=== PATIENT | female | born 1995 | race Caucasian/White ===

== ENCOUNTER 2016-08-28 16:28 | Emergency (ER) | payer BC, OTHER ==
[~2016-08-28] VITALS: Ht 157.4 cm; Wt 46.3 kg
[~2016-08-28 16:28] MED LIST: ANTIDEPRESSANT; ATARAX25 MG PO; LOTRIMIN 1%15 GM PO; NKHM; NORVASC5 MG PO; ZOFRAN ODT4 MG SL
[2016-08-28 16:42] VITALS: BP 127/87
[2016-08-28 17:19] LABS: BASO # 0.1 10*3/uL (0.0-0.1); BASO % 0.5 % (0.0-1.0); EOS % 0.3 % (1.0-4.0); HEMATOCRIT 36.4 % (37.0-47.0); HEMOGLOBIN 12.4 g/dl (12.0-16.0); LYMPH # 2.2 10*3/uL (1.3-4.4); LYMPH % 23.1 % (27.0-41.0); MEAN CORPUSCULAR HGB 27.3 pg (27.0-31.0); MEAN CORPUSCULAR HGB CONC 34.1 g/dl (33.0-37.0); MEAN PLATELET VOLUME 10.3 fl (9.6-12.3); MONO # 0.5 10*3/uL (0.1-1.0); MONO % 4.8 % (3.0-9.0); NEUT # 6.8 10*3/uL (2.3-7.9); PLATELET COUNT AUTOMATED 344 10*3/uL (130-400); RED BLOOD COUNT 4.55 10*6/uL (4.10-5.10); RED CELL DISTRI WIDTH 13.1 % (0-14.5); WHITE BLOOD COUNT 9.6 10*3/uL (4.8-10.8)
[2016-08-28 17:35] LABS: ALBUMIN 3.6 gm/dl (3.1-4.5); ALKALINE PHOSPHATASE 32 U/L (45-117); BILIRUBIN, TOTAL 0.3 mg/dl (0.2-1.0); BUN 7 mg/dl (7-24); CARBON DIOXIDE 24 mmol/L (21-32); CHLORIDE 104 mmol/L (98-107); EST GLOM FILT AFRICAN AMERICAN > 60 ml/min; GLUCOSE 92 mg/dL (65-99); POTASSIUM 3.6 mmol/L (3.5-5.1); SGOT/AST 14 IU/L (3-35); SGPT/ALT 18 U/L (12-78); SODIUM 140 mmol/L (136-145); TOTAL PROTEIN 7.2 gm/dL (6.4-8.2)
[2016-08-28] MEDS ORDERED: ZOFRAN ODT4 MG SL (17:54)
== END 2016-08-28 17:58 | disposition home or self-care (01) ==
LOC: ED 16:28
PROVIDERS: Nurse Practitioner Family
DX: G43.909 Migraine, unspecified, not intractable, without status migrainosus (principal); Z88.8 Allergy status to other drugs, medicaments and biological substances

== ENCOUNTER 2016-09-13 20:46 | Emergency (ER) | payer BC, OTHER ==
[~2016-09-13] VITALS: Ht 157.4 cm; Wt 46.3 kg
[2016-09-13 20:54] VITALS: BP 134/98
[2016-09-13 21:20] LABS: BASO # 0.1 10*3/uL (0.0-0.1); BASO % 0.5 % (0.0-1.0); EOS # 0.1 10*3/uL (0.0-0.4); EOS % 0.6 % (1.0-4.0); HEMATOCRIT 38.5 % (37.0-47.0); HEMOGLOBIN 13.2 g/dl (12.0-16.0); LYMPH # 3.1 10*3/uL (1.3-4.4); LYMPH % 28.6 % (27.0-41.0); MEAN CELL VOLUME 78.3 fl (81.0-99.0); MEAN CORPUSCULAR HGB 26.8 pg (27.0-31.0); MEAN CORPUSCULAR HGB CONC 34.3 g/dl (33.0-37.0); MEAN PLATELET VOLUME 9.6 fl (9.6-12.3); MONO # 0.6 10*3/uL (0.1-1.0); NEUT # 6.9 10*3/uL (2.3-7.9); NEUT % 64.1 % (47.0-73.0); PLATELET COUNT AUTOMATED 401 10*3/uL (130-400); RED BLOOD COUNT 4.92 10*6/uL (4.10-5.10); RED CELL DISTRI WIDTH 13.1 % (0-14.5); WHITE BLOOD COUNT 10.7 10*3/uL (4.8-10.8)
[2016-09-13 21:37] LABS: B-hCG (QUALITATIVE) NEGATIVE (NEGATIVE); BUN 2 mg/dl (7-24); CARBON DIOXIDE 26 mmol/L (21-32); CHLORIDE 99 mmol/L (98-107); EST GLOM FILT AFRICAN AMERICAN > 60 ml/min; GLUCOSE 96 mg/dL (65-99); POTASSIUM 3.7 mmol/L (3.5-5.1); SODIUM 135 mmol/L (136-145); TROPONIN I < 0.015 ng/ml (<0.5)
[2016-09-13] MEDS ORDERED: ANAPROX DS550 MG PO (22:25)
== END 2016-09-13 22:18 | disposition home or self-care (01) ==
LOC: ED 20:46
PROVIDERS: Emergency Medicine Emergency Medical Services
DX: M94.0 Chondrocostal junction syndrome [Tietze] (principal); G43.909 Migraine, unspecified, not intractable, without status migrainosus; Z88.8 Allergy status to other drugs, medicaments and biological substances

== ENCOUNTER 2018-03-28 19:40 | Emergency (ER) | payer BC, OTHER ==
[~2018-03-28] VITALS: Ht 157.4 cm; Wt 54.4 kg
[~2018-03-28 19:40] MED LIST changes: +ANAPROX DS550 MG PO
[2018-03-28 20:17] LABS: BILIRUBIN NEGATIVE (NEGATIVE); BLOOD TRACE-INTACT (NEGATIVE); CLARITY CLEAR (CLEAR); COLOR YELLOW (YELLOW); GLUCOSE NEGATIVE (NEGATIVE); KETONE NEGATIVE (NEGATIVE); LEUKO ESTERASE 1+ (NEGATIVE); NITRITE NEGATIVE (NEGATIVE); SPECIFIC GRAVITY <= 1.005 (1.005-1.030); UROBILINOGEN 0.2 E.U./dl (0.2-1.0)
[2018-03-28 20:36] LABS: BACTERIA 1+
[2018-03-28] MEDS ORDERED: MACROBID100 M1 PO (21:14)
[2018-03-28] MEDS ORDERED: ROBAXIN500 M1 PO (21:14)
[2018-03-28 21:46] VITALS: BP 118/89
== END 2018-03-28 22:09 | disposition home or self-care (01) ==
LOC: ED 19:40
PROVIDERS: Physician Assistant
DX: N39.0 Urinary tract infection, site not specified (principal); M54.9 Dorsalgia, unspecified; M62.830 Muscle spasm of back; Z88.8 Allergy status to other drugs, medicaments and biological substances

== ENCOUNTER 2018-11-21 15:13 | Emergency (ER) | payer BC, OTHER ==
[~2018-11-21] VITALS: Ht 157.4 cm; Wt 50.8 kg
[2018-11-21 15:13] VITALS: BP 147/98
[~2018-11-21 15:13] MED LIST changes: +MACROBID100 M1 PO; +ROBAXIN500 M1 PO
[2018-11-21] MEDS ORDERED: Motrin,Rufen800 MG PO (16:57)
[2018-11-21] MEDS ORDERED: CYCLOBENZAPRINE10 MG PO (16:57)
[2018-11-21] MEDS ORDERED: MEDROL DOSEPAK4 MG PO (16:57)
[2019-03-19] MEDS ORDERED: MELATONIN5 M7 PO (13:54)
[2019-03-19] MEDS ORDERED: MIRTAZAPINE15 M2 PO (13:55)
[2019-03-22] MEDS ORDERED: NORCO 5-325 TA1 EACH PO (08:51)
== END 2018-11-21 17:00 | disposition home or self-care (01) ==
LOC: ED 15:13
DX: M62.830 Muscle spasm of back (principal); M54.6 Pain in thoracic spine; G43.909 Migraine, unspecified, not intractable, without status migrainosus; Z88.8 Allergy status to other drugs, medicaments and biological substances

== ENCOUNTER 2019-03-01 06:44 | Emergency (ER) | payer BC, OTHER ==
[~2019-03-01] VITALS: Ht 157.4 cm; Wt 55.3 kg
[~2019-03-01 06:44] MED LIST changes: +CYCLOBENZAPRINE10 MG PO; +MEDROL DOSEPAK4 MG PO; +Motrin,Rufen800 MG PO
[2019-03-01 07:28] LABS: BASO # 0.1 10*3/uL (0.0-0.1); BASO % 0.6 % (0.0-1.0); EOS % 0.3 % (1.0-4.0); HEMATOCRIT 41.2 % (37.0-47.0); HEMOGLOBIN 14.5 g/dl (12.0-16.0); LYMPH # 1.6 10*3/uL (1.3-4.4); LYMPH % 14.5 % (27.0-41.0); MEAN CELL VOLUME 84.9 fl (81.0-99.0); MEAN CORPUSCULAR HGB 29.9 pg (27.0-31.0); MEAN CORPUSCULAR HGB CONC 35.2 g/dl (33.0-37.0); MEAN PLATELET VOLUME 9.3 fl (9.6-12.3); MONO # 0.3 10*3/uL (0.1-1.0); NEUT % 81.3 % (47.0-73.0); PLATELET COUNT AUTOMATED 379 10*3/uL (130-400); RED BLOOD COUNT 4.85 10*6/uL (4.10-5.10); RED CELL DISTRI WIDTH 11.9 % (0-14.5)
[2019-03-01 07:45] LABS: ALBUMIN 4.1 gm/dl (3.1-4.5); ALKALINE PHOSPHATASE 59 U/L (45-117); BUN 8 mg/dl (7-24); CHLORIDE 106 mmol/L (98-107); CREATININE 0.81 mg/dL (0.55-1.02); POTASSIUM 3.8 mmol/L (3.5-5.1); SGOT/AST 14 IU/L (3-35); SGPT/ALT 20 U/L (12-78); SODIUM 138 mmol/L (136-145); TOTAL PROTEIN 7.9 gm/dL (6.4-8.2)
[2019-03-01 08:01] LABS: BILIRUBIN NEGATIVE (NEGATIVE); BLOOD TRACE-INTACT (NEGATIVE); CLARITY CLEAR (CLEAR); COLOR YELLOW (YELLOW); GLUCOSE NEGATIVE (NEGATIVE); KETONE NEGATIVE (NEGATIVE); LEUKO ESTERASE TRACE (NEGATIVE); NITRITE NEGATIVE (NEGATIVE); PH 6.5 (5.0-9.0); SPECIFIC GRAVITY 1.015 (1.005-1.030); UROBILINOGEN 0.2 E.U./dl (0.2-1.0)
[2019-03-01 08:11] LABS: BACTERIA TRACE
[2019-03-01] MEDS ORDERED: PHENERGAN25 M3 PO (08:55)
[2019-03-01] MEDS ORDERED: NORCO 10-325 T1 EACH PO (08:56)
[2019-03-01 08:57] VITALS: BP 152/104
[2019-03-19] MEDS ORDERED: MELATONIN5 M7 PO (13:54)
[2019-03-19] MEDS ORDERED: MIRTAZAPINE15 M2 PO (13:55)
[2019-03-22] MEDS ORDERED: NORCO 5-325 TA1 EACH PO (08:51)
== END 2019-03-01 09:02 | disposition home or self-care (01) ==
LOC: ED 06:44
PROVIDERS: Emergency Medicine
DX: K80.20 Calculus of gallbladder without cholecystitis without obstruction (principal); G43.909 Migraine, unspecified, not intractable, without status migrainosus; Z88.8 Allergy status to other drugs, medicaments and biological substances

== ENCOUNTER → 2019-03-22 | Day surgery (SDC) | payer BC, OTHER ==
[2019-03-22] VITALS (7 sets, daily range): BP systolic 110–135; BP diastolic 74–90
[~2019-03-22] VITALS: Ht 157.4 cm; Wt 56.7 kg
[~2019-03-22] MED LIST changes: +MELATONIN5 M7 PO; +MIRTAZAPINE15 M2 PO; +NORCO 10-325 T1 EACH PO; +NORCO 5-325 TA1 EACH PO; +PHENERGAN25 M3 PO
--- NOTE | ~2019-03-22 | O ---
[place], [place] OPERATIVE NOTE NAME: MARY TOM [facility] #: [id number] UNIT #: [id number] ROOM: DOCTOR: KLEBER BEARD MD BIRTHDATE: [birth year] DOS: 03/22/2019 PREOPERATIVE DIAGNOSIS: Symptomatic gallstones. POSTOPERATIVE DIAGNOSIS: Acute cholecystitis. PROCEDURE: Laparoscopic cholecystectomy. SURGEON: Kleber Beard MD MUD ANALYSIS OPERATOR: DAVID. ANESTHESIA: General with endotracheal intubation. INDICATIONS: This is a 24-year-old lady who is here for laparoscopic cholecystectomy for symptomatic gallstones. The procedure and its complications were explained to the patient in detail preoperatively. Complications that were discussed included, but were not limited to bleeding, infection, hematoma/seroma/abscess formation, biloma formation, prolonged postoperative pain, damage to lying vital structures, inadvertent injury to common bile duct, and incisional hernia formation. She agreed to proceed. DESCRIPTION OF PROCEDURE: After identifying the patient, the patient was brought to the operating suite and laid in the supine position. After induction of general anesthesia, the parts were painted and draped in the usual sterile fashion. Timeout procedure was called. An incision was made below the umbilicus in a transverse fashion. The skin and the subcutaneous tissue were incised. The fascia was incised vertically and 2 stay sutures with 0 Vicryl were taken on either side. The peritoneum was opened and a 12 mm Blanco port was introduced. Pneumoperitoneum was created. Under direct vision, an epigastric incision of 12 mm and two 5 mm incisions were made in the right upper quadrant and appropriate size ports were introduced. The gallbladder was found to be distended and acutely inflamed. Multiple adhesions were taken down in order to better visualize the gallbladder and the cystic duct. The gallbladder was retracted superiorly and laterally. The cystic duct and the cystic artery were meticulously dissected until the critical view of safety was obtained and the triangle of Calot was clearly identified. Thereafter, each of these structures were clipped 3 times and cut between the first and the second clip. The gallbladder was then removed from the bed of the gallbladder with the help of electrocautery. It was placed in the EndoCatch bag and removed from the peritoneal cavity and sent for histopathological diagnosis. Thereafter, hemostasis was confirmed and the irrigation fluid was sucked away. The right upper quadrant and the epigastric ports were then removed under direct vision and there was no bleeding seen. The umbilical port was also removed and the pneumoperitoneum was decompressed. The fascial defect was then approximated with the help of an additional 0 Vicryl suture and stay sutures were also tied together. The edges of the skin incisions were infiltrated with 1% plain lidocaine and then approximated with the help of 4-0 Vicryl in a subcuticular running fashion. Dressings were placed. The patient tolerated the procedure well. She was extubated uneventfully and brought back to the recovery room in [place], [place] OPERATIVE NOTE NAME: MARY TOM UNIT #: [id number] ROOM: DOCTOR: KLEBER BEARD MD BIRTHDATE: [birth year] stable fashion. There were no complications. Dr. Kleber Beard, the attending surgeon, was present throughout the operating case. Kleber Beard MD CM:OPRECORD:OPERATIVE NOTE [id number] KLEBER BEARD MD 03/22/19 0922 interface
== END | disposition home or self-care (01) ==
LOC: SDC 03-19 13:15
DX: K80.10 Calculus of gallbladder with chronic cholecystitis without obstruction (principal); I10 Essential (primary) hypertension; F41.9 Anxiety disorder, unspecified; Z98.890 Other specified postprocedural states; Z79.899 Other long term (current) drug therapy; Z80.8 Family history of malignant neoplasm of other organs or systems

== ENCOUNTER → 2019-11-15 | Outpatient (CLI) | payer BC, OTHER | END | disposition home or self-care (01) | LOC: US 13:43 | DX: E04.1 Nontoxic single thyroid nodule (principal) ==

== ENCOUNTER 2020-07-22 06:03 | Emergency (ER) | payer OTHER ==
[~2020-07-22] VITALS: Ht 157.4 cm; Wt 58.5 kg
[2020-07-22 06:07] VITALS: BP 154/80
[2020-07-22] MEDS ORDERED: AMOXICILLIN500 M2 PO (06:22)
== END 2020-07-22 06:55 | disposition home or self-care (01) ==
LOC: ED 06:03
DX: K04.7 Periapical abscess without sinus (principal); K08.89 Other specified disorders of teeth and supporting structures; Z88.8 Allergy status to other drugs, medicaments and biological substances; Z79.899 Other long term (current) drug therapy

== ENCOUNTER 2020-12-29 23:39 | Emergency (ER) | payer OTHER ==
[~2020-12-29 23:39] MED LIST changes: +AMOXICILLIN500 M2 PO
[2020-12-30 00:17] VITALS: BP 117/76
== END 2020-12-30 01:29 | disposition home or self-care (01) ==
LOC: ED 23:39
DX: T78.40XA Allergy, unspecified, initial encounter (principal); Z79.899 Other long term (current) drug therapy; X58.XXXA Exposure to other specified factors, initial encounter

== ENCOUNTER 2021-05-20 17:41 | Emergency (ER) | payer OTHER ==
[~2021-05-20] VITALS: Ht 157.4 cm; Wt 54.4 kg
[2021-05-20 22:01] VITALS: BP 118/90
== END 2021-05-21 00:05 | disposition home or self-care (01) ==
LOC: ED 17:41
DX: S96.912A Strain of unspecified muscle and tendon at ankle and foot level, left foot, initial encounter (principal); S20.211A Contusion of right front wall of thorax, initial encounter; S09.90XA Unspecified injury of head, initial encounter; G43.909 Migraine, unspecified, not intractable, without status migrainosus; Z88.8 Allergy status to other drugs, medicaments and biological substances; V89.2XXA Person injured in unspecified motor-vehicle accident, traffic, initial encounter; Y93.89 Activity, other specified; Y92.89 Other specified places as the place of occurrence of the external cause; Y99.8 Other external cause status

== ENCOUNTER 2022-02-01 20:35 | Emergency (ER) | payer OTHER ==
[~2022-02-01] VITALS: Ht 157.4 cm; Wt 47.6 kg
[2022-02-01 20:45] VITALS: BP 155/100
[2022-02-01] MEDS ORDERED: ZOFRAN4 MG PO (20:59)
[2022-02-01] MEDS ORDERED: AUGMENTIN 875-875 MG PO (20:59)
[2022-02-01] MEDS ORDERED: NAPROSYN500 MG PO (20:59)
== END 2022-02-01 21:11 | disposition home or self-care (01) ==
LOC: ED 20:35
DX: K02.9 Dental caries, unspecified (principal); Z90.89 Acquired absence of other organs

== ENCOUNTER 2022-02-10 11:19 | Emergency (ER) | payer OTHER ==
[~2022-02-10 11:19] MED LIST changes: +AUGMENTIN 875-875 MG PO; +NAPROSYN500 MG PO; +ZOFRAN4 MG PO
[2022-02-10 11:37] VITALS: BP 138/108
[2022-02-10] MEDS ORDERED: CLINDAMYCIN HC300 MG PO (11:39)
[2022-02-10] MEDS ORDERED: Motrin,Rufen800 MG PO (11:39)
== END 2022-02-10 11:42 | disposition home or self-care (01) ==
LOC: ED 11:19
DX: K04.7 Periapical abscess without sinus (principal)

== ENCOUNTER 2022-03-26 21:25 | Emergency (ER) | payer OTHER ==
[~2022-03-26] VITALS: Ht 157.4 cm; Wt 49.9 kg
[~2022-03-26 21:25] MED LIST changes: +CLINDAMYCIN HC300 MG PO
[2022-03-26 21:42] VITALS: BP 158/106
[2022-03-26] MEDS ORDERED: AUGMENTIN 500500 M1 PO (21:49)
[2022-03-26] MEDS ORDERED: Motrin,Rufen800 MG PO (21:54)
== END 2022-03-26 22:30 | disposition home or self-care (01) ==
LOC: ED 21:25
DX: K04.7 Periapical abscess without sinus (principal); Z88.8 Allergy status to other drugs, medicaments and biological substances

== ENCOUNTER 2022-05-10 16:20 | Emergency (ER) | payer OTHER ==
[~2022-05-10] VITALS: Ht 157.4 cm; Wt 46.3 kg
[~2022-05-10 16:20] MED LIST changes: +AUGMENTIN 500500 M1 PO
[2022-05-10 16:23] VITALS: BP 153/90
[2022-05-10] MEDS ORDERED: CLEOCIN HCL300 MG PO (16:42)
[2022-05-10] MEDS ORDERED: ONDANSETRON4 MG SL (16:42)
[2022-05-10] MEDS ORDERED: HYDROCODONE-AC1 EACH PO ×2 (16:42→16:43)
== END 2022-05-10 16:54 | disposition home or self-care (01) ==
LOC: ED 16:20
DX: K04.7 Periapical abscess without sinus (principal); Z88.8 Allergy status to other drugs, medicaments and biological substances; Z90.89 Acquired absence of other organs

== ENCOUNTER 2022-06-29 17:22 | Emergency (ER) | payer OTHER ==
[~2022-06-29] VITALS: Wt 49.4 kg
[~2022-06-29 17:22] MED LIST changes: +CLEOCIN HCL300 MG PO; +HYDROCODONE-AC1 EACH PO; +ONDANSETRON4 MG SL
[2022-06-29 17:28] VITALS: BP 122/57
[2022-06-29] MEDS ORDERED: PREDNISONE20 M1 PO (20:24)
[2022-06-29] MEDS ORDERED: PERCOCET 7.5-31 EACH PO (20:24)
== END 2022-06-29 20:38 | disposition home or self-care (01) ==
LOC: ED 17:22
DX: G89.29 Other chronic pain (principal); M54.50 Low back pain, unspecified; M54.6 Pain in thoracic spine; Z88.8 Allergy status to other drugs, medicaments and biological substances; Z79.2 Long term (current) use of antibiotics; Z79.899 Other long term (current) drug therapy; Z96.22 Myringotomy tube(s) status

== ENCOUNTER 2022-07-25 19:26 | Emergency (ER) | payer OTHER ==
[~2022-07-25] VITALS: Ht 157.4 cm; Wt 47.2 kg
[~2022-07-25 19:26] MED LIST changes: +PERCOCET 7.5-31 EACH PO; +PREDNISONE20 M1 PO
[2022-07-25 19:34] VITALS: BP 148/91
[2022-07-25 20:40] LABS: BILIRUBIN Negative (Negative); BLOOD Negative (Negative); CLARITY Clear (Clear); COLOR Yellow (Yellow); GLUCOSE Negative (Negative); KETONE Negative (Negative); LEUKO ESTERASE Negative (Negative); NITRITE Negative (Negative); PH 6.5 (4.5-8.0); SPECIFIC GRAVITY <= 1.005 (1.001-1.030); UROBILINOGEN 0.2 E.U./dl (0.0-1.0)
[2022-07-25 21:04] LABS: BACTERIA TRACE; EPITHELIAL CELLS 0-2
[2022-07-25] MEDS ORDERED: HYDROCODONE-AC1 EAC1 PO (21:07)
[2022-07-25] MEDS ORDERED: PREDNISONE20 M1 PO (21:08)
== END 2022-07-25 22:04 | disposition home or self-care (01) ==
LOC: ED 19:26
PROVIDERS: Emergency Medicine
DX: M54.9 Dorsalgia, unspecified (principal); W22.8XXA Striking against or struck by other objects, initial encounter; Y93.89 Activity, other specified; Y92.89 Other specified places as the place of occurrence of the external cause; Y99.8 Other external cause status

== ENCOUNTER 2022-07-26 21:48 | Emergency (ER) | payer OTHER ==
[~2022-07-26] VITALS: Wt 47.2 kg
[~2022-07-26 21:48] MED LIST changes: +HYDROCODONE-AC1 EAC1 PO
[2022-07-26 22:36] VITALS: BP 138/79
== END 2022-07-26 23:41 | disposition home or self-care (01) ==
LOC: ED 21:48
DX: T42.4X1A Poisoning by benzodiazepines, accidental (unintentional), initial encounter (principal); Z88.8 Allergy status to other drugs, medicaments and biological substances; Z90.89 Acquired absence of other organs; Y92.89 Other specified places as the place of occurrence of the external cause

== ENCOUNTER 2022-08-24 19:42 | Emergency (ER) | payer OTHER ==
[~2022-08-24] VITALS: Ht 157.4 cm; Wt 49.4 kg
[2022-08-24 20:00] VITALS: BP 142/92
[2022-08-24] MEDS ORDERED: DULOXETINE HCL60 MG PO (20:15)
[2022-08-24] MEDS ORDERED: TRAZODONE100 MG PO (20:15)
[2022-08-24 21:18] LABS: BASO # 0.1 10*3/uL (0.0-0.1); EOS # 0.1 10*3/uL (0.0-0.4); EOS % 1.7 % (1.0-4.0); HEMATOCRIT 39.2 % (37.0-47.0); LYMPH # 1.7 10*3/uL (1.3-4.4); LYMPH % 28.1 % (27.0-41.0); MEAN CELL VOLUME 80.7 fl (81.0-99.0); MEAN CORPUSCULAR HGB 28.6 pg (27.0-31.0); MEAN CORPUSCULAR HGB CONC 35.5 g/dl (33.0-37.0); MEAN PLATELET VOLUME 8.6 fl (9.6-12.3); MONO # 0.4 10*3/uL (0.1-1.0); MONO % 6.6 % (3.0-9.0); NEUT # 3.8 10*3/uL (2.3-7.9); NEUT % 62.4 % (47.0-73.0); PLATELET COUNT AUTOMATED 377 10*3/uL (130-400); RED BLOOD COUNT 4.86 10*6/uL (4.10-5.10); WHITE BLOOD COUNT 6.1 10*3/uL (4.8-10.8)
[2022-08-24 21:35] LABS: ALKALINE PHOSPHATASE 55 U/L (46-116); CHLORIDE 95 mmol/L (98-107); POTASSIUM 4.1 mmol/L (3.4-5.1); SGPT/ALT 21 U/L (10-49); TOTAL PROTEIN 6.7 gm/dL (6.0-8.0)
[2022-08-24 21:36] LABS: BUN < 5 mg/dl (9-23)
[2022-08-24 21:50] LABS: BILIRUBIN Negative (Negative); BLOOD 3+ (Negative); CLARITY Clear (Clear); COLOR Red (Yellow); GLUCOSE Negative (Negative); KETONE Negative (Negative); LEUKO ESTERASE 2+ (Negative); NITRITE Negative (Negative); PH 6.5 (4.5-8.0); SPECIFIC GRAVITY <= 1.005 (1.001-1.030)
[2022-08-24 21:59] LABS: BACTERIA TRACE; EPITHELIAL CELLS 0-2; RBC TNTC rbc/hpf (0-2); WBC 16-20 wbc/hpf (0-5)
[2022-08-25] MEDS ORDERED: CIPRO500 MG PO (00:54)
== END 2022-08-25 00:59 | disposition home or self-care (01) ==
LOC: ED 19:42
PROVIDERS: Physician Assistant
DX: N39.0 Urinary tract infection, site not specified (principal); Q61.3 Polycystic kidney, unspecified; Q85.83 Von Hippel-Lindau syndrome; E87.1 Hypo-osmolality and hyponatremia; R51.9 Headache, unspecified; I10 Essential (primary) hypertension; Z88.8 Allergy status to other drugs, medicaments and biological substances; Z79.899 Other long term (current) drug therapy; Z90.89 Acquired absence of other organs

== ENCOUNTER 2022-09-11 22:07 | Emergency (ER) | payer OTHER ==
[~2022-09-11 22:07] MED LIST changes: +CIPRO500 MG PO; +DULOXETINE HCL60 MG PO; +TRAZODONE100 MG PO
[2022-09-11 22:22] VITALS: BP 147/67
[2022-09-11] MEDS ORDERED: PREDNISONE50 MG PO (22:27)
[2022-09-11] MEDS ORDERED: CYCLOBENZAPRINE10 MG PO (22:28)
== END 2022-09-11 22:45 | disposition home or self-care (01) ==
LOC: ED 22:07
DX: M54.6 Pain in thoracic spine (principal); Z88.8 Allergy status to other drugs, medicaments and biological substances; Z98.890 Other specified postprocedural states

== ENCOUNTER 2022-09-23 19:04 | Emergency (ER) | payer OTHER ==
[~2022-09-23] VITALS: Ht 157.4 cm; Wt 63.5 kg
[~2022-09-23 19:04] MED LIST changes: +PREDNISONE50 MG PO
[2022-09-23 19:32] VITALS: BP 122/65
[2022-09-23] MEDS ORDERED: HYDROCODONE-AC1 EAC1 PO (20:35)
[2022-09-24] MEDS ORDERED: HYDROCODONE-AC1 EAC1 PO (11:12)
== END 2022-09-23 21:09 | disposition home or self-care (01) ==
LOC: ED 19:04
DX: F25.0 Schizoaffective disorder, bipolar type (principal); Z88.1 Allergy status to other antibiotic agents; Z88.8 Allergy status to other drugs, medicaments and biological substances; Z79.899 Other long term (current) drug therapy

== ENCOUNTER 2022-09-27 08:12 | Emergency (ER) | payer OTHER ==
[~2022-09-27] VITALS: Wt 49.9 kg
[2022-09-27 08:19] VITALS: BP 153/108
== END 2022-09-27 09:21 | disposition home or self-care (01) ==
LOC: ED 08:12
DX: S60.221A Contusion of right hand, initial encounter (principal); Z79.899 Other long term (current) drug therapy; Z90.89 Acquired absence of other organs; Z88.8 Allergy status to other drugs, medicaments and biological substances; W22.01XA Walked into wall, initial encounter; Y93.89 Activity, other specified; Y92.89 Other specified places as the place of occurrence of the external cause; Y99.8 Other external cause status

== ENCOUNTER 2022-10-21 19:20 | Emergency (ER) | payer OTHER ==
[~2022-10-21] VITALS: Ht 157.4 cm; Wt 49.9 kg
[2022-10-21] MEDS ORDERED: 'CLONIDINE0.1 MG PO ×2 (19:48→19:49)
[2022-10-21 19:54] VITALS: BP 126/78
[2022-10-21] MEDS ORDERED: METHOCARBAMOL750 M1 PO (20:02)
[2022-10-21] MEDS ORDERED: NAPROXEN250 MG PO (20:02)
== END 2022-10-21 20:06 | disposition home or self-care (01) ==
LOC: ED 19:20
DX: S29.012A Strain of muscle and tendon of back wall of thorax, initial encounter (principal); Z88.8 Allergy status to other drugs, medicaments and biological substances; Z79.899 Other long term (current) drug therapy; Z90.89 Acquired absence of other organs; Z98.890 Other specified postprocedural states; X58.XXXA Exposure to other specified factors, initial encounter; Y93.89 Activity, other specified; Y92.89 Other specified places as the place of occurrence of the external cause; Y99.8 Other external cause status

== ENCOUNTER 2022-12-10 18:15 | Emergency (ER) | payer OTHER ==
[~2022-12-10] VITALS: Ht 157.4 cm; Wt 50.8 kg
[~2022-12-10 18:15] MED LIST changes: +'CLONIDINE0.1 MG PO; +METHOCARBAMOL750 M1 PO; +NAPROXEN250 MG PO
[2022-12-10 19:00] VITALS: BP 140/98
[2022-12-10] MEDS ORDERED: AMBIEN5 MG PO (19:15)
[2022-12-10] MEDS ORDERED: PENICILLIN VK500 MG PO (19:27)
== END 2022-12-10 19:55 | disposition home or self-care (01) ==
LOC: ED 18:15
DX: K02.9 Dental caries, unspecified (principal); Z88.8 Allergy status to other drugs, medicaments and biological substances; Z79.899 Other long term (current) drug therapy; Z90.89 Acquired absence of other organs

== ENCOUNTER 2023-01-18 06:39 | Emergency (ER) | payer OTHER ==
[~2023-01-18] VITALS: Ht 162.5 cm; Wt 68.0 kg
[~2023-01-18 06:39] MED LIST changes: +AMBIEN5 MG PO; +PENICILLIN VK500 MG PO
[2023-01-18 06:49] VITALS: BP 105/76
[2023-01-18] MEDS ORDERED: Motrin,Rufen800 MG PO (08:28)
== END 2023-01-18 08:41 | disposition home or self-care (01) ==
LOC: ED 06:39
DX: S09.90XA Unspecified injury of head, initial encounter (principal); M25.512 Pain in left shoulder; M54.2 Cervicalgia; M54.50 Low back pain, unspecified; I10 Essential (primary) hypertension; Z88.8 Allergy status to other drugs, medicaments and biological substances; Z98.890 Other specified postprocedural states; W18.2XXA Fall in (into) shower or empty bathtub, initial encounter; Y93.89 Activity, other specified; Y92.002 Bathroom of unspecified non-institutional (private) residence as the place of occurrence of the external cause; Y99.8 Other external cause status

== ENCOUNTER 2023-03-05 07:02 | Emergency (ER) | payer OTHER ==
[~2023-03-05] VITALS: Ht 157.4 cm; Wt 51.7 kg
[2023-03-05 07:11] VITALS: BP 122/86
[2023-03-05 08:33] LABS: BASO # 0.1 10*3/uL (0.0-0.1); BASO % 0.6 % (0.0-1.0); EOS # 0.1 10*3/uL (0.0-0.4); EOS % 0.5 % (1.0-4.0); HEMATOCRIT 37.7 % (37.0-47.0); LYMPH # 1.5 10*3/uL (1.3-4.4); LYMPH % 11.4 % (27.0-41.0); MEAN CORPUSCULAR HGB 28.6 pg (27.0-31.0); MEAN CORPUSCULAR HGB CONC 34.5 g/dl (33.0-37.0); MONO # 0.6 10*3/uL (0.1-1.0); MONO % 4.5 % (3.0-9.0); NEUT # 10.8 10*3/uL (2.3-7.9); NEUT % 82.8 % (47.0-73.0); PLATELET COUNT AUTOMATED 302 10*3/uL (130-400); RED BLOOD COUNT 4.54 10*6/uL (4.10-5.10); RED CELL DISTRI WIDTH 12.1 % (0-14.5)
[2023-03-05 08:56] LABS: ALKALINE PHOSPHATASE 63 U/L (46-116); BUN 5 mg/dl (9-23); CHLORIDE 99 mmol/L (98-107); POTASSIUM 3.4 mmol/L (3.4-5.1); SGPT/ALT 7 U/L (10-49); TOTAL PROTEIN 6.2 gm/dL (6.0-8.0)
[2023-03-05 09:11] LABS: BILIRUBIN Negative (Negative); BLOOD Negative (Negative); CLARITY Clear (Clear); COLOR Yellow (Yellow); GLUCOSE Negative (Negative); KETONE Negative (Negative); LEUKO ESTERASE 1+ (Negative); NITRITE Negative (Negative); PH 6.5 (4.5-8.0); SPECIFIC GRAVITY <= 1.005 (1.001-1.030)
[2023-03-05 09:26] LABS: BACTERIA TRACE; MUCOUS TRACE
[2023-03-05] MEDS ORDERED: REGLAN10 M1 PO (10:13)
== END 2023-03-05 10:50 | disposition home or self-care (01) ==
LOC: ED 07:02
PROVIDERS: Internal Medicine
DX: R11.2 Nausea with vomiting, unspecified (principal); R05.9 Cough, unspecified; M54.2 Cervicalgia; R68.84 Jaw pain; M54.9 Dorsalgia, unspecified; M25.551 Pain in right hip; M25.552 Pain in left hip; G89.29 Other chronic pain; Z88.8 Allergy status to other drugs, medicaments and biological substances; Z79.899 Other long term (current) drug therapy; Z79.2 Long term (current) use of antibiotics; Z96.22 Myringotomy tube(s) status

== ENCOUNTER 2023-03-21 13:08 | Emergency (ER) | payer OTHER ==
[~2023-03-21] VITALS: Wt 52.2 kg
[~2023-03-21 13:08] MED LIST changes: +REGLAN10 M1 PO
[2023-03-21 13:23] VITALS: BP 112/74
[2023-03-21] MEDS ORDERED: HYDROCODONE-AC1 EAC1 PO ×2 (14:53)
[2023-03-21] MEDS ORDERED: AMOX-CLAV 875-1 EACH PO ×2 (14:53)
[2023-03-24] MEDS ORDERED: TRAZODONE100 MG PO (10:27)
== END 2023-03-21 15:10 | disposition home or self-care (01) ==
LOC: ED 13:08
DX: S00.551A Superficial foreign body of lip, initial encounter (principal); Z88.8 Allergy status to other drugs, medicaments and biological substances; Z79.899 Other long term (current) drug therapy; Z79.2 Long term (current) use of antibiotics; Z96.22 Myringotomy tube(s) status; X58.XXXA Exposure to other specified factors, initial encounter; Y93.89 Activity, other specified; Y92.89 Other specified places as the place of occurrence of the external cause; Y99.8 Other external cause status

== ENCOUNTER → 2023-03-28 | Day surgery (SDC) | payer OTHER ==
[~2023-03-28] VITALS: Ht 157.4 cm; Wt 52.2 kg
[~2023-03-28] MED LIST changes: +AMOX-CLAV 875-1 EACH PO
[2023-03-28 10:31] VITALS: BP 126/72
[2023-03-28 11:06] VITALS: BP 114/79
[2023-03-28 11:21] VITALS: BP 128/93
[2023-03-28 11:31] VITALS: BP 125/90
== END ==
LOC: SDC 03-25 12:30
PROVIDERS: ATTEND Surgery
DX: S00.551A Superficial foreign body of lip, initial encounter (principal); Q85.83 Von Hippel-Lindau syndrome; I10 Essential (primary) hypertension; H54.7 Unspecified visual loss; F41.9 Anxiety disorder, unspecified; F32.A Depression, unspecified; Z79.899 Other long term (current) drug therapy; Z90.49 Acquired absence of other specified parts of digestive tract; Z90.89 Acquired absence of other organs; Z98.890 Other specified postprocedural states; X58.XXXA Exposure to other specified factors, initial encounter

== ENCOUNTER 2023-05-14 21:01 | Emergency (ER) | payer OTHER ==
[~2023-05-14] VITALS: Ht 157.4 cm; Wt 52.2 kg
[2023-05-14 22:02] LABS: BASO # 0.1 10*3/uL (0.0-0.1); BASO % 0.8 % (0.0-1.0); EOS # 0.1 10*3/uL (0.0-0.4); EOS % 1.4 % (1.0-4.0); HEMATOCRIT 38.9 % (37.0-47.0); LYMPH # 1.3 10*3/uL (1.3-4.4); LYMPH % 20.3 % (27.0-41.0); MEAN CELL VOLUME 83.1 fl (81.0-99.0); MEAN CORPUSCULAR HGB 28.6 pg (27.0-31.0); MEAN CORPUSCULAR HGB CONC 34.4 g/dl (33.0-37.0); MEAN PLATELET VOLUME 8.8 fl (9.6-12.3); MONO # 0.4 10*3/uL (0.1-1.0); MONO % 6.3 % (3.0-9.0); NEUT # 4.6 10*3/uL (2.3-7.9); NEUT % 70.7 % (47.0-73.0); PLATELET COUNT AUTOMATED 313 10*3/uL (130-400); RED BLOOD COUNT 4.68 10*6/uL (4.10-5.10); RED CELL DISTRI WIDTH 12.9 % (0-14.5); WHITE BLOOD COUNT 6.5 10*3/uL (4.8-10.8)
[2023-05-14 22:24] LABS: ALKALINE PHOSPHATASE 65 U/L (46-116); CHLORIDE 106 mmol/L (98-107); POTASSIUM 4.3 mmol/L (3.4-5.1); SGPT/ALT 12 U/L (10-49); TOTAL PROTEIN 6.4 gm/dL (6.0-8.0)
[2023-05-14 22:29] LABS: BUN < 5 mg/dl (9-23)
[2023-05-14 23:21] VITALS: BP 157/106
[2023-05-14] MEDS ORDERED: ONDANSETRON4 MG SL (23:23)
== END 2023-05-14 23:35 | disposition home or self-care (01) ==
LOC: ED 21:01
PROVIDERS: Nurse Practitioner
DX: B34.9 Viral infection, unspecified (principal); R11.2 Nausea with vomiting, unspecified; I10 Essential (primary) hypertension; Z88.8 Allergy status to other drugs, medicaments and biological substances; Z98.890 Other specified postprocedural states; Z20.822 Contact with and (suspected) exposure to COVID-19

== ENCOUNTER 2023-08-08 04:14 | Emergency (ER) | payer OTHER ==
[~2023-08-08] VITALS: Ht 157.4 cm; Wt 49.9 kg
[2023-08-08 04:24] VITALS: BP 163/109
[2023-08-08] MEDS ORDERED: AMOX-CLAV 875-1 EACH PO (05:32)
[2023-08-08] MEDS ORDERED: MELOXICAM15 MG PO (05:32)
== END 2023-08-08 05:47 | disposition home or self-care (01) ==
LOC: ED 04:14
DX: K02.9 Dental caries, unspecified (principal); K04.7 Periapical abscess without sinus; R51.9 Headache, unspecified; I10 Essential (primary) hypertension; Z88.8 Allergy status to other drugs, medicaments and biological substances; Z98.890 Other specified postprocedural states; Z20.822 Contact with and (suspected) exposure to COVID-19

== ENCOUNTER 2023-09-09 21:20 | Emergency (ER) | payer OTHER ==
[~2023-09-09] VITALS: Ht 157.4 cm; Wt 54.9 kg
[~2023-09-09 21:20] MED LIST changes: +MELOXICAM15 MG PO
[2023-09-09] MEDS ORDERED: BUSPIRONE10 MG PO (21:44)
[2023-09-09] MEDS ORDERED: ATENOLOL25 MG PO (21:44)
[2023-09-09 22:50] LABS: BASO # 0.1 10*3/uL (0.0-0.1); BASO % 0.6 % (0.0-1.0); EOS # 0.2 10*3/uL (0.0-0.4); EOS % 1.7 % (1.0-4.0); HEMATOCRIT 38.6 % (37.0-47.0); LYMPH # 2.1 10*3/uL (1.3-4.4); LYMPH % 18.1 % (27.0-41.0); MEAN CELL VOLUME 84.3 fl (81.0-99.0); MEAN CORPUSCULAR HGB 28.4 pg (27.0-31.0); MEAN CORPUSCULAR HGB CONC 33.7 g/dl (33.0-37.0); MEAN PLATELET VOLUME 8.6 fl (9.6-12.3); MONO # 0.7 10*3/uL (0.1-1.0); MONO % 5.9 % (3.0-9.0); NEUT # 8.7 10*3/uL (2.3-7.9); NEUT % 73.5 % (47.0-73.0); PLATELET COUNT AUTOMATED 337 10*3/uL (130-400); RED BLOOD COUNT 4.58 10*6/uL (4.10-5.10); RED CELL DISTRI WIDTH 11.7 % (0-14.5); WHITE BLOOD COUNT 11.8 10*3/uL (4.8-10.8)
[2023-09-09 23:11] LABS: ALKALINE PHOSPHATASE 49 U/L (46-116); CHLORIDE 103 mmol/L (98-107); POTASSIUM 3.7 mmol/L (3.4-5.1); SGPT/ALT 18 U/L (5-49); TOTAL PROTEIN 6.6 gm/dL (6.0-8.0)
[2023-09-09 23:12] LABS: BUN < 5 mg/dl (9-23)
[2023-09-10 00:50] VITALS: BP 137/99
[2023-09-10 01:00] LABS: BILIRUBIN Negative (Negative); BLOOD 3+ (Negative); CLARITY Clear (Clear); COLOR Yellow (Yellow); GLUCOSE Negative (Negative); KETONE Negative (Negative); LEUKO ESTERASE 2+ (Negative); NITRITE Negative (Negative); SPECIFIC GRAVITY <= 1.005 (1.001-1.030)
[2023-09-10 01:18] LABS: EPITHELIAL CELLS 16-20
[2023-09-10] MEDS ORDERED: CIPRO500 MG PO (01:27)
== END 2023-09-10 01:34 | disposition home or self-care (01) ==
LOC: ED 21:20
PROVIDERS: Internal Medicine; Physician Assistant Medical
DX: N39.0 Urinary tract infection, site not specified (principal); I10 Essential (primary) hypertension; R51.9 Headache, unspecified; R11.0 Nausea; Z88.8 Allergy status to other drugs, medicaments and biological substances; Z98.890 Other specified postprocedural states

== ENCOUNTER → 2023-09-13 | Outpatient (CLI) | payer OTHER ==
[~2023-09-13] MED LIST changes: +ATENOLOL25 MG PO; +BUSPIRONE10 MG PO
== END | disposition home or self-care (01) ==
LOC: RAD 12:49
PROVIDERS: ATTEND Internal Medicine Nephrology
DX: M51.36 Other intervertebral disc degeneration, lumbar region (principal); M47.816 Spondylosis without myelopathy or radiculopathy, lumbar region; M48.061 Spinal stenosis, lumbar region without neurogenic claudication

== ENCOUNTER 2024-02-18 16:28 | Emergency (ER) | payer OTHER ==
[~2024-02-18] VITALS: Ht 157.4 cm; Wt 54.0 kg
[2024-02-18 16:51] VITALS: BP 124/78
[2024-02-18] MEDS ORDERED: Acetaminophen/Oxycodone 5 MG/325 MG TABLET PO ONE (17:00)
[2024-02-18] MEDS ORDERED: CYCLOBENZAPRINE10 MG PO (17:05)
[2024-02-18] MEDS ORDERED: MELOXICAM15 MG PO (17:05)
[2024-02-18] MEDS ORDERED: METHOCARBAMOL750 M1 PO (17:41)
== END 2024-02-18 17:42 | disposition home or self-care (01) ==
LOC: ED 16:28
DX: M62.830 Muscle spasm of back (principal); I10 Essential (primary) hypertension; Z88.8 Allergy status to other drugs, medicaments and biological substances; Z98.890 Other specified postprocedural states

== ENCOUNTER → 2024-02-24 | Outpatient (CLI) | payer OTHER | END | disposition home or self-care (01) | LOC: RAD 14:47 | PROVIDERS: ATTEND Family Medicine | DX: M25.512 Pain in left shoulder (principal) ==

== ENCOUNTER 2024-03-07 16:03 | Emergency (ER) | payer OTHER ==
[~2024-03-07] VITALS: Ht 157.4 cm; Wt 54.0 kg
[2024-03-07 16:24] VITALS: BP 121/73
[2024-03-07] MEDS ORDERED: AMOX-CLAV 875-1 EACH PO (17:20)
== END 2024-03-07 17:22 | disposition home or self-care (01) ==
LOC: ED 16:03
DX: K02.9 Dental caries, unspecified (principal); Z88.8 Allergy status to other drugs, medicaments and biological substances; Z79.899 Other long term (current) drug therapy; Z96.22 Myringotomy tube(s) status

== ENCOUNTER 2024-03-16 20:52 | Emergency (ER) | payer OTHER ==
[~2024-03-16] VITALS: Ht 157.4 cm; Wt 54.0 kg
[2024-03-16 21:04] VITALS: BP 135/86
[2024-03-17] MEDS ORDERED: PREDNISONE20 M1 PO (00:14)
[2024-03-17] MEDS ORDERED: predniSONE 20 MG TAB PO ONE (00:15)
== END 2024-03-17 00:31 | disposition home or self-care (01) ==
LOC: ED 20:52
DX: M54.6 Pain in thoracic spine (principal); M25.512 Pain in left shoulder; G43.909 Migraine, unspecified, not intractable, without status migrainosus; Z88.8 Allergy status to other drugs, medicaments and biological substances; Z79.2 Long term (current) use of antibiotics; Z79.899 Other long term (current) drug therapy; Z87.42 Personal history of other diseases of the female genital tract; Z96.22 Myringotomy tube(s) status; W18.39XA Other fall on same level, initial encounter; Y93.89 Activity, other specified; Y92.89 Other specified places as the place of occurrence of the external cause; Y99.8 Other external cause status

== ENCOUNTER → 2024-05-03 | Outpatient (CLI) | payer OTHER ==
[2024-05-08 15:07] LABS: NORMETANEPHRINE, PLASMA 60.9 pg/mL (0.0-210.1)
[2024-05-08 15:32] LABS: METANEPHRINE, PLASMA <25.0 pg/mL (0.0-88.0)
== END | disposition home or self-care (01) ==
LOC: LAB 09:52
PROVIDERS: ATTEND Internal Medicine Hematology & Oncology
DX: E27.5 Adrenomedullary hyperfunction (principal)

== ENCOUNTER 2024-10-08 05:45 | Emergency (ER) | payer OTHER ==
[~2024-10-08] VITALS: Ht 157.4 cm; Wt 59.0 kg
[2024-10-08 05:59] VITALS: BP 148/102
[2024-10-08] MEDS ORDERED: Acetaminophen/Hydrocodone 5 MG/325 MG TABLET PO ONE (07:55)
== END 2024-10-08 08:18 | disposition home or self-care (01) ==
LOC: ED 05:45
DX: S93.401A Sprain of unspecified ligament of right ankle, initial encounter (principal); S80.11XA Contusion of right lower leg, initial encounter; I10 Essential (primary) hypertension; Z88.8 Allergy status to other drugs, medicaments and biological substances; Z98.890 Other specified postprocedural states; W01.0XXA Fall on same level from slipping, tripping and stumbling without subsequent striking against object, initial encounter; Y93.E1 Activity, personal bathing and showering; Y92.009 Unspecified place in unspecified non-institutional (private) residence as the place of occurrence of the external cause; Y99.8 Other external cause status

== ENCOUNTER → 2024-10-23 | Outpatient (CLI) | payer OTHER | END | disposition home or self-care (01) | LOC: LAB 11:59 | PROVIDERS: ATTEND Urology | DX: N28.89 Other specified disorders of kidney and ureter (principal) ==

== ENCOUNTER 2025-01-05 13:15 | Emergency (ER) | payer OTHER ==
[~2025-01-05] VITALS: Ht 157.4 cm; Wt 56.7 kg
[2025-01-05 13:28] VITALS: BP 146/107
[2025-01-05] MEDS ORDERED: Amoxicillin/Clavulanate Pota 875 MG TAB PO ONE (13:35)
[2025-01-05] MEDS ORDERED: AMOX-CLAV 875-1 EACH PO (13:35)
[2025-01-05] MEDS ORDERED: Acetaminophen/Hydrocodone 5 MG/325 MG TABLET PO ONE (13:40)
== END 2025-01-05 14:00 | disposition home or self-care (01) ==
LOC: ED 13:15
DX: K04.7 Periapical abscess without sinus (principal); Z88.8 Allergy status to other drugs, medicaments and biological substances; Z79.899 Other long term (current) drug therapy; Z96.22 Myringotomy tube(s) status

== ENCOUNTER 2025-01-28 07:52 | Emergency (ER) | payer OTHER ==
[~2025-01-28] VITALS: Ht 157.4 cm; Wt 56.7 kg
[2025-01-28 07:57] VITALS: BP 103/62
[2025-01-28] MEDS ORDERED: TYLE3UD PO (08:04)
[2025-01-28] MEDS ORDERED: CLINDAMYCIN HC300 MG PO (08:04)
[2025-01-28] MEDS ORDERED: Ondansetron4 MG PO (08:04)
[2025-01-28] MEDS ORDERED: Ketorolac Tromethamine 60 MG/2 ML VIAL IM ONE (08:05)
[2025-01-28] MEDS ORDERED: CLINDAMYCIN HCL 300 MG CAPSULE PO ONE (08:05)
[2025-01-28] MEDS ORDERED: Ondansetron Hydrochloride 4 MG TAB PO ONE (08:05)
== END 2025-01-28 08:18 | disposition home or self-care (01) ==
LOC: ED 07:52
DX: K02.9 Dental caries, unspecified (principal); I10 Essential (primary) hypertension; Z88.8 Allergy status to other drugs, medicaments and biological substances; Z98.890 Other specified postprocedural states

== ENCOUNTER 2025-02-25 15:00 | Emergency (ER) | payer OTHER ==
[~2025-02-25] VITALS: Ht 157.4 cm; Wt 54.4 kg
[~2025-02-25 15:00] MED LIST changes: +Ondansetron4 MG PO; +TYLE3UD PO
[2025-02-25 15:28] VITALS: BP 150/113
[2025-02-25] MEDS ORDERED: SODIUM CHLORIDE 0.9% 1,000 ML IV ONE (16:00)
[2025-02-25] MEDS ORDERED: IOHEXOL 300 MG/ML 100 ML VIAL IV ONE (16:10)
[2025-02-25 16:15] LABS: BASO # 0.1 10*3/uL (0.0-0.1); BASO % 1.0 % (0.0-1.0); EOS # 0.2 10*3/uL (0.0-0.4); EOS % 2.3 % (1.0-4.0); MEAN CELL VOLUME 78.4 fl (81.0-99.0); MEAN CORPUSCULAR HGB 26.6 pg (27.0-31.0); MEAN PLATELET VOLUME 9.0 fl (9.6-12.3); MONO # 0.5 10*3/uL (0.1-1.0); MONO % 5.2 % (3.0-9.0); NEUT # 6.6 10*3/uL (2.3-7.9); NEUT % 63.5 % (47.0-73.0); NUCLEATED RED BLOOD CELL 0.0 % (0.0-0.0); NUCLEATED RED BLOOD CELL 0.0 10*3/uL (0.0-0.0); PLATELET COUNT AUTOMATED 469 10*3/uL (130-400); RED CELL DISTRI WIDTH 13.3 % (0-14.5)
[2025-02-25 16:44] LABS: BUN 6 mg/dl (9-23); SGPT/ALT 25 U/L (5-49)
[2025-02-25 17:32] LABS: BILIRUBIN Negative (Negative); BLOOD 3+ (Negative); CLARITY Clear (Clear); COLOR Yellow (Yellow); KETONE Negative (Negative); LEUKO ESTERASE 3+ (Negative); NITRITE Negative (Negative); PH 6.5 (4.5-8.0); SPECIFIC GRAVITY 1.015 (1.001-1.030); UROBILINOGEN 0.2 E.U./dl (0.0-1.0)
[2025-02-25 18:00] LABS: BACTERIA 2+; RBC TNTC rbc/hpf (0-2); WBC 16-20 wbc/hpf (0-5)
[2025-02-25] MEDS ORDERED: PERCOCET 5-3251 EACH PO (18:21)
[2025-02-25] MEDS ORDERED: Acetaminophen/Oxycodone 5 MG/325 MG TABLET PO ONE (18:35)
== END 2025-02-25 18:43 | disposition home or self-care (01) ==
LOC: ED 15:00
PROVIDERS: Internal Medicine
DX: C64.9 Malignant neoplasm of unspecified kidney, except renal pelvis (principal); Z79.899 Other long term (current) drug therapy; Z88.8 Allergy status to other drugs, medicaments and biological substances; Z98.890 Other specified postprocedural states

== ENCOUNTER → 2025-02-26 | Outpatient (CLI) | payer OTHER ==
[~2025-02-26] MED LIST changes: +PERCOCET 5-3251 EACH PO
[2025-02-26 15:41] LABS: BASO # 0.1 10*3/uL (0.0-0.1); BASO % 0.8 % (0.0-1.0); EOS # 0.3 10*3/uL (0.0-0.4); EOS % 3.0 % (1.0-4.0); MEAN CELL VOLUME 79.6 fl (81.0-99.0); MEAN CORPUSCULAR HGB 26.8 pg (27.0-31.0); MEAN PLATELET VOLUME 8.7 fl (9.6-12.3); MONO # 0.7 10*3/uL (0.1-1.0); MONO % 6.9 % (3.0-9.0); NEUT # 5.4 10*3/uL (2.3-7.9); NEUT % 51.5 % (47.0-73.0); NUCLEATED RED BLOOD CELL 0.0 % (0.0-0.0); NUCLEATED RED BLOOD CELL 0.0 10*3/uL (0.0-0.0); PLATELET COUNT AUTOMATED 438 10*3/uL (130-400); RED CELL DISTRI WIDTH 13.2 % (0-14.5)
[2025-02-26 16:12] LABS: SGPT/ALT 21 U/L (5-49)
[2025-02-26 16:13] LABS: BUN < 5 mg/dl (9-23)
== END | disposition home or self-care (01) ==
LOC: LAB 15:13
PROVIDERS: ATTEND Internal Medicine
DX: C64.2 Malignant neoplasm of left kidney, except renal pelvis (principal); Q85.83 Von Hippel-Lindau syndrome

== ENCOUNTER → 2025-03-12 | Outpatient (CLI) | payer OTHER ==
[2025-03-12 13:34] LABS: BASO # 0.1 10*3/uL (0.0-0.1); BASO % 0.6 % (0.0-1.0); EOS # 0.2 10*3/uL (0.0-0.4); EOS % 1.8 % (1.0-4.0); MEAN CELL VOLUME 80.0 fl (81.0-99.0); MEAN CORPUSCULAR HGB 26.1 pg (27.0-31.0); MEAN PLATELET VOLUME 8.9 fl (9.6-12.3); MONO # 0.5 10*3/uL (0.1-1.0); MONO % 4.7 % (3.0-9.0); NEUT # 7.4 10*3/uL (2.3-7.9); NEUT % 75.3 % (47.0-73.0); NUCLEATED RED BLOOD CELL 0.0 % (0.0-0.0); NUCLEATED RED BLOOD CELL 0.0 10*3/uL (0.0-0.0); PLATELET COUNT AUTOMATED 340 10*3/uL (130-400); RED CELL DISTRI WIDTH 12.6 % (0-14.5)
[2025-03-12 14:04] LABS: BUN 8 mg/dl (9-23); SGPT/ALT 42 U/L (5-49)
== END | disposition home or self-care (01) ==
LOC: LAB 13:18
PROVIDERS: ATTEND Internal Medicine
DX: C64.2 Malignant neoplasm of left kidney, except renal pelvis (principal); Q85.83 Von Hippel-Lindau syndrome

== ENCOUNTER → 2025-04-23 | Outpatient (CLI) | payer OTHER ==
[2025-04-23 11:03] LABS: BASO # 0.1 10*3/uL (0.0-0.1); BASO % 0.7 % (0.0-1.0); EOS # 0.3 10*3/uL (0.0-0.4); EOS % 3.7 % (1.0-4.0); MEAN CELL VOLUME 81.4 fl (81.0-99.0); MEAN CORPUSCULAR HGB 27.1 pg (27.0-31.0); MEAN PLATELET VOLUME 8.2 fl (9.6-12.3); MONO # 0.5 10*3/uL (0.1-1.0); MONO % 5.9 % (3.0-9.0); NEUT # 4.7 10*3/uL (2.3-7.9); NEUT % 56.3 % (47.0-73.0); NUCLEATED RED BLOOD CELL 0.0 % (0.0-0.0); NUCLEATED RED BLOOD CELL 0.0 10*3/uL (0.0-0.0); PLATELET COUNT AUTOMATED 425 10*3/uL (130-400); RED CELL DISTRI WIDTH 14.5 % (0-14.5)
[2025-04-23 11:25] LABS: BUN 5 mg/dl (9-23); SGPT/ALT 10 U/L (5-49)
[2025-04-23 11:46] LABS: LDL CHOLESTEROL 79.0 mg/dL (9-159)
[2025-04-23 11:51] LABS: VITAMIN D, 25-HYDROXY 31.1 ng/mL (30-100)
== END ==
LOC: LAB 10:40
PROVIDERS: Nurse Practitioner Adult Health; ATTEND Internal Medicine
DX: C64.2 Malignant neoplasm of left kidney, except renal pelvis (principal); Q85.83 Von Hippel-Lindau syndrome; Z13.21 Encounter for screening for nutritional disorder; Z13.29 Encounter for screening for other suspected endocrine disorder

== ENCOUNTER → 2025-05-20 | Outpatient (CLI) | payer OTHER ==
[2025-05-20 12:14] LABS: BASO # 0.1 10*3/uL (0.0-0.1); BASO % 0.9 % (0.0-1.0); EOS # 0.5 10*3/uL (0.0-0.4); EOS % 6.0 % (1.0-4.0); MEAN CELL VOLUME 82.6 fl (81.0-99.0); MEAN CORPUSCULAR HGB 28.7 pg (27.0-31.0); MEAN PLATELET VOLUME 8.8 fl (9.6-12.3); MONO # 0.6 10*3/uL (0.1-1.0); MONO % 6.9 % (3.0-9.0); NEUT # 4.0 10*3/uL (2.3-7.9); NEUT % 49.9 % (47.0-73.0); NUCLEATED RED BLOOD CELL 0.0 % (0.0-0.0); NUCLEATED RED BLOOD CELL 0.0 10*3/uL (0.0-0.0); PLATELET COUNT AUTOMATED 362 10*3/uL (130-400); RED CELL DISTRI WIDTH 13.7 % (0-14.5)
[2025-05-20 12:54] LABS: BUN 6 mg/dl (9-23); SGPT/ALT 13 U/L (5-49)
== END | disposition home or self-care (01) ==
LOC: LAB 11:35
PROVIDERS: ATTEND Internal Medicine
DX: C64.2 Malignant neoplasm of left kidney, except renal pelvis (principal)

== ENCOUNTER 2025-06-17 03:05 | Emergency (ER) | payer OTHER ==
[~2025-06-17] VITALS: Ht 157.4 cm; Wt 63.5 kg
[2025-06-17 03:17] VITALS: BP 123/80
[2025-06-17] MEDS ORDERED: Promethazine Hydrochloride 25 MG/ML VIAL IM ONE (03:30)
== END 2025-06-17 03:35 | disposition home or self-care (01) ==
LOC: ED 03:05
DX: C80.1 Malignant (primary) neoplasm, unspecified (principal); R10.9 Unspecified abdominal pain; I10 Essential (primary) hypertension; Z88.8 Allergy status to other drugs, medicaments and biological substances

== ENCOUNTER 2025-06-20 17:59 | Emergency (ER) | payer OTHER ==
[~2025-06-20] VITALS: Wt 70.3 kg
[~2025-06-20 17:59] MED LIST changes: +DEXTROSE 50% 25 GM/50 ML SYR IV ONE; +EPINEPHrine Hydrochloride 1 MG/10 ML SYR IV ONE; +SODIUM BICARBONATE 50 MEQ/50 ML SYR IV ONE
[2025-06-20] MEDS ORDERED: SODIUM CHLORIDE 0.9% 2,000 ML IV ONE (18:28)
[2025-06-20 18:29] LABS: ABG O2 SATURATION 60.9 % (94.0-98.0)
[2025-06-20 18:30] LABS: MEAN CELL VOLUME 98.3 fl (81.0-99.0); MEAN CORPUSCULAR HGB 30.1 pg (27.0-31.0); MEAN PLATELET VOLUME 10.4 fl (9.6-12.3); NUCLEATED RED BLOOD CELL 0.0 10*3/uL (0.0-0.0); NUCLEATED RED BLOOD CELL 0.3 % (0.0-0.0); PLATELET COUNT AUTOMATED 378 10*3/uL (130-400); RED CELL DISTRI WIDTH 12.5 % (0-14.5)
[2025-06-20 18:32] LABS: ABG BASE EXCESS -27.5 mmol/L (-2.0-3.0); ARTERIAL BLOOD GAS PO2 54.7 mmHg (83.0-108.0)
[2025-06-20] MEDS ORDERED: NOREPINEPHRINE BITARTRATE/D5W 250 ML IV ONE ×2 (18:32→21:37)
[2025-06-20 18:34] LABS: ARTERIAL BLOOD GAS PH 6.684 (7.350-7.450)
[2025-06-20] MEDS ORDERED: SODIUM BICARBONATE 150 MEQ in DEXTROSE 5% 1,000 ML IV ONE (18:40)
[2025-06-20 18:45] LABS: MANUAL DIFF REFLEX YES
[2025-06-20 18:49] LABS: BUN 22.0 mg/dl (9-23); SGPT/ALT 234.0 U/L (5-49)
[2025-06-20 18:57] LABS: PLATELET SUFFICIENCY NORMAL (NORMAL)
[2025-06-20] MEDS ORDERED: Lactated Ringer's Solution 1,000 ML IV ONE (19:06)
[2025-06-20 19:07] LABS: ETHYL ALCOHOL < 3.0 mg/dl (<3)
[2025-06-20] MEDS ORDERED: SODIUM CHLORIDE 0.9% 100 ML BAG IV ONE (19:15)
[2025-06-20] MEDS ORDERED: Iodixanol 320 100 ML VIAL IV ONE (19:15)
[2025-06-20 19:22] LABS: URINE AMPHETAMINES Negative (1000ng/ml); URINE BARBITURATES Negative (200ng/ml); URINE BENZODIAZEPINES Negative (200ng/ml); URINE CANNABINOIDS (THC) Negative (50ng/ml); URINE COCAINE Negative (300ng/ml); URINE METHADONE Negative (300ng/ml); URINE OPIATES Negative (300ng/ml); URINE PHENCYCLIDINE Negative (25ng/ml)
[2025-06-20 19:24] LABS: ABG O2 SATURATION 64.3 % (94.0-98.0)
[2025-06-20 19:26] LABS: ABG BASE EXCESS -26.3 mmol/L (-2.0-3.0); ARTERIAL BLOOD GAS PH 6.742 (7.350-7.450)
[2025-06-20 19:27] LABS: ARTERIAL BLOOD GAS PO2 54.5 mmHg (83.0-108.0)
[2025-06-20] MEDS ORDERED: DEXTROSE 50% 25 GM/50 ML SYR IV ONE (19:30)
[2025-06-20 20:31] LABS: ACT PARTIAL THROMBO TIME 118.9 SECONDS (20.0-32.1)
[2025-06-21 00:10] VITALS: BP 78/45
== END 2025-06-21 01:50 ==
LOC: ED 17:59
PROVIDERS: Student in an Organized Health Care Education/Training Program
DX: I46.9 Cardiac arrest, cause unspecified (principal); I10 Essential (primary) hypertension; Z88.8 Allergy status to other drugs, medicaments and biological substances; Z79.899 Other long term (current) drug therapy